=== PATIENT | female | born 1990 | race Asian ===

== ENCOUNTER 2025-06-29 22:58 | Inpatient (IN) ==
[2025-06-29] MEDS ORDERED: LIDOCAINE 1% LOCAL 20 ML VIAL INFIL PRN (23:15)
--- NOTE | 2025-06-29 23:21 | History & Physical Report ---
Date of Service June 29, 2025 Assessment & Plan (1) Previous delivery affecting , antepartum: Plan: Admit to L&D. Patient desires . Reviewed consent - patient aware of risk of uterine rupture, need for emergent surgery, need for hysterectomy, large blood loss. She would prefer to attempt to deliver vaginally rather than repeat section. She would like epidural. History of Present Illness Chief Complaint: labor Primary Care Provider: NO PCP 34yo @ 40 02/25, spontaneous labor. and Delivery Plans 2020, 2022 *[facility]- group ok with will need default c/s scheduled for 39w6d - pt aware 01/25. C/S SCHEDULED FOR 07/07/[address] FOOTE Hypothyroid *Check TFTs Q4wks ?Antiphospholipid Syndrome taking aspirin daily per her MD in [facility] - no further testing need per guidelines - discussed at [facility] Will be in [place] from 02/04 til April. GDM w/28wk glucola *Begin monthly Growth US's Allergies Allergy/AdvReac Type Severity Reaction Status Date / Time No Known Allergies Allergy Verified 06/29/25 09:15 Home Medications Medication Instructions Recorded Confirmed Type levothyroxine 25 mg PO DAILY 12/28/24 06/29/25 History acetone (urine) test (Ketone Urine #50 ea 05/12/25 06/29/25 Rx Test strips) blood sugar diagnostic (Accu-Chek #150 ea 05/12/25 06/29/25 Rx Guide test strips) blood-glucose meter (Accu-Chek #1 ea 05/12/25 06/29/25 Rx Guide Glucose Meter) lancets (Accu-Chek Softclix #100 ea 05/12/25 06/29/25 Rx Lancets) Patient History Medical History (Updated 06/29/25 @ 23:26 by Betty Ferrer RN) Vaginal after () 2022 delivery delivered 2020 Antiphospholipid syndrome Varicella vaccination Sacroiliitis Surgical History S/P laparoscopy S/P appendectomy S/P section Family History (Updated 12/28/24 @ 10:05 by Tanika Biswas) Father Diabetes Hypertension Denies family history of Ovarian cancer Breast cancer Colorectal cancer Social History (Updated 12/28/24 @ 10:06 by Tanika Biswas) Smoking Status: Never smoker Do You Dip or Chew Tobacco: No; Preferred Language: [place] Citizen marital status: marital status details: Pasha (33) [phone] Current Living Situation: Spouse and Family Current Living Situation Comment: lives with spouse, 2 children, no pets current occupational status: unemployed current occupation: homemaker Feels Safe at Home: Yes Review of Systems All systems reviewed & are unremarkable except as noted in HPI & below Physical Exam Physical Exam: FHT Cat 1 [place] irreg SVE 8/100/0 Constitutional: WD/WN, vitals as above Respiratory: normal respiratory effort, lungs clear to auscultation no respiratory distress Cardiovascular: Rate/Rhythm: regular rate and regular rhythm Gastrointestinal (Abdomen): Inspection/Auscultation: abdomen normal to inspection Percussion/Palpation: abdomen soft; abdomen nontender Gravid. No s/s chorio or abruption. Skin: no rashes, warm and dry Psychiatric: A+Ox3, euthymic affect Results & Data Vital Signs (Past 12 Hours) Vital Signs Pulse BP 06/29/25 23:15 88 129/72 Coding Level of Care Code None Diagnoses Previous delivery affecting , antepartum O34.219
[2025-06-29] MEDS: LACTATED RINGER'S 1,000 ML IV PRN (23:24)
[2025-06-29 23:58] LABS: Hematocrit (blood only) 35.4 % (37.0-47.0); Hemoglobin 11.6 g/dl (12.0-16.0); Mean Corpuscular Hemoglobin 29.7 pg (25.0-34.0); Mean Corpuscular Volume 90.8 fL (80.0-100.0); Platelet Count 234 K/uL (130-400); RDW Standard Deviation 42.7 fL (36.4-46.3); Red Blood Count 3.90 M/uL (4.20-5.40); White Blood Count 14.66 K/ul (4.8-10.8)
--- NOTE | 2025-06-30 | Anesthesiology Consultation ---
Date of Service June 29, 2025 Assessment & Plan (1) Encounter for pre-operative examination: Chart Review Chart Review: Acceptable Risk for Labor Epidural History Height/Weight Height: 5 ft 7.72 in Weight: 83.007 kg Allergies Allergy/AdvReac Type Severity Reaction Status Date / Time No Known Allergies Allergy Verified 06/29/25 09:15 Medications Home Medications Medication Instructions Recorded Confirmed Last Taken levothyroxine 25 mg PO DAILY 12/28/24 06/29/25 06/29/25 acetone (urine) test (Ketone Urine #50 ea 05/12/25 06/29/25 Unknown Test strips) blood sugar diagnostic (Accu-Chek #150 ea 05/12/25 06/29/25 Unknown Guide test strips) blood-glucose meter (Accu-Chek #1 ea 05/12/25 06/29/25 Unknown Guide Glucose Meter) lancets (Accu-Chek Softclix #100 ea 05/12/25 06/29/25 Unknown Lancets) Active Medications Generic Name Dose Route Start Last Admin Trade Name Freq PRN Reason Stop Dose Admin Lactated Ringer's 1,000 mls @ 125 mls/hr 06/29/25 23:15 06/29/25 23:24 Lr IV 07/01/25 23:14 999 mls/hr .Q8H PRN Administration L&D Protocol Protocol Past Medical History Medical History Vaginal after () 2022 delivery delivered 2020 Antiphospholipid syndrome Varicella vaccination Sacroiliitis Past Family History Family History Father Diabetes Hypertension Denies family history of Ovarian cancer Breast cancer Colorectal cancer Past Surgical History Surgical History S/P laparoscopy S/P appendectomy S/P section Social History Smoking Status: Never smoker Do You Dip or Chew Tobacco: No Hx Alcohol Use: No Hx Substance Use: No Physical Exam Vital Signs Last Vital Signs Temp 36.6 C 06/29/25 23:29 Pulse 88 06/29/25 23:15 Resp 18 06/29/25 23:29 BP 129/72 06/29/25 23:15 O2 Del Method Room Air 06/29/25 23:29 Testing Laboratory Results 06/29/25 23:46
[2025-06-30] MEDS: BUPIVACAINE 0.25% PF 30 ML VIAL ONE (00:22)
[2025-06-30] MEDS ORDERED: ONDANSETRON INJ 2 MG/ML 2 ML VIAL IV PRN (00:26)
[2025-06-30] MEDS ORDERED: NALOXONE HCL 0.4 MG/1 ML VIAL/CARP IV PRN (00:26)
[2025-06-30] MEDS: LIDOCAINE 2%/EPINEPHRINE 1:200,000 20 ML PF ONE (00:26)
[2025-06-30] MEDS ORDERED: SODIUM CHLORIDE 0.9% PF INJ 10 ML VIAL EPI PRN (00:26)
[2025-06-30] MEDS ORDERED: fentANYL 2 MCG/ML BUPIVacaine 0.125%-NSS 100ML BAG EPI PRN (00:26)
[2025-06-30] MEDS ORDERED: NALOXONE HCL 1 MG in SODIUM CHLORIDE 0.9% 1,000 ML IV PRN (00:26)
[2025-06-30] MEDS ORDERED: ROPIVACAINE 0.5% PF 5 MG/ML 20 ML VIAL EPI PRN (00:26)
[2025-06-30] MEDS ORDERED: LIDOCAINE 2% MPF LOCAL 5 ML VIAL EPI PRN (00:26)
[2025-06-30] MEDS ORDERED: BUPIVACAINE 0.25% PF 30 ML VIAL EPI PRN (00:26)
[2025-06-30] MEDS: fentANYL 2 MCG/ML BUPIVacaine 0.125%-NSS 100ML BAG ONE (00:31)
[2025-06-30] MEDS: BUPIVACAINE 0.25% PF 30 ML VIAL EPI STA (01:00)
[2025-06-30] MEDS: LIDOCAINE 2%/EPINEPHRINE 1:200,000 20 ML PF EPI STA (01:00)
[2025-06-30] MEDS: SODIUM CHLORIDE 0.9% PF INJ 10 ML VIAL EPI STA (01:00)
[2025-06-30] MEDS: SODIUM CHLORIDE 0.9% PF INJ 10 ML VIAL ONE (01:00)
[2025-06-30] MEDS: OXYTOCIN 30 UNITS/NSS 30 UNITS/500 ML BAG IV PRN ×2 (01:43→02:16)
--- NOTE | 2025-06-30 02:04 | Delivery Summary ---
Vaginal Delivery Summary Date of Service June 30, 2025 Vaginal Delivery Summary and 1st Degree LAC Vaginal Delivery Summary: Pre-delivery diagnoses: 34yo @ 39 0/7, spontaneous labor, h/o CS x 1, GDMA1 Post-delivery diagnoses: same Procedure: vaginal after section Surgeon: Rochelle Franco DO Complications: none Findings: Viable female . Apgars: 8/9 . Weight pending, please see nursery records Estimated blood loss: Description of delivery: The patient progressed to complete with epidural anesthesia. She then began to push. She spontaneously vaginally delivered a viable from the cephalic presentation. The head delivered in MARIANNA position. The anterior shoulder delivered, followed by the posterior shoulder, followed by the body. No nuchal. The baby was placed on mother's abdomen and a spontaneous cry was heard. Delayed cord clamping was employed, and the cord was doubly clamped and cut. Cord blood was obtained. The placenta was delivered spontaneously intact with a 3-vessel cord. The uterus and vagina were swept of clots and debris. IV pitocin was given. The uterus became firm. The cervix, vagina, and perineum were inspected. First degree perineal laceration and right labia minora laceration repaired with 3-0 Vicryl in standard fashion. Excellent hemostasis was observed. The mother and baby are recovering in stable and good condition in the room. Sponge, needle and instrument counts were correct x 2. Rochelle Franco DO [facility] Vaginal Delivery Charge Vaginal Delivery Codes: 91569 global code for the antepartum, delivery, and post- Delivery Type Details: and 1st Degree LAC
[2025-06-30] MEDS ORDERED: DIPHTHER/TETAN/PERTUS Vaccine (Tdap, Adol/Adult) 0.5mL IM ONE (02:11)
[2025-06-30] MEDS ORDERED: ACETAMINOPHEN 325 MG TAB PO PRN (02:11)
[2025-06-30] MEDS: OXYTOCIN 30 UNITS/500ML NSS IV ONE (02:30)
--- NOTE | 2025-06-30 02:53 | Anesthesia Procedure Note ---
Date of Service June 30, 2025 Anesthesia Post Epidural Note Vital Signs Vital Signs: Temp Pulse Resp BP Pulse Ox O2 Del Method 36.5 C 89 18 109/60 94 Room Air 06/30/25 02:00 06/30/25 02:45 06/30/25 02:30 06/30/25 02:45 06/30/25 01:43 06/29/25 23:29 Notes Mental Status: alert / awake / arousable and participated in evaluation Nausea / Vomiting: adequately controlled Pain: adequately controlled Airway Patency, RR, SpO2: stable & adequate BP & HR: stable & adequate Hydration State: stable & adequate Neuraxial Anesthesia: was administered and sensory block is resolving Anesthetic Complications: no major complications apparent Epidural: Removed without complications and With tip intact
[2025-06-30] MEDS: BENZOCAINE 20% SPRY 85 APPLN/85 GM CAN EXT PRN (04:21)
[2025-06-30] MEDS: LEVOTHYROXINE SODIUM 25 MCG TABLET PO SCH (06:30)
[2025-06-30] MEDS: IBUPROFEN 600 MG TAB PO PRN (08:34)
[2025-06-30] MEDS: PRENATAL VITAMIN 1 TAB PO SCH (08:34)
[2025-06-30] MEDS: DOCUSATE SODIUM 100 MG CAP PO SCH (08:34)
[2025-06-30] MEDS: HYDROCORTISONE ACETATE 25 MG SUPP PR PRN (16:16)
--- NOTE | 2025-07-01 06:17 | Obstetrical Progress Note ---
Date of Service July 01, 2025 Assessment & Plan (1) Gestational diabetes mellitus (GDM) affecting , antepartum: (2) Hypothyroid in , antepartum: (3) Previous delivery affecting , antepartum: Plan Assessment and plan 34 yo post- day 1 s/p Fells well today. Vital signs stable Continue post- care Encourage ambulation and Pain controlled with ibuprofen Hgb stable Discharge home today, follow up with Dr. Franco in 6 weeks. Admission and Anticipated Discharge Date Admission Date: June 29, 2025 Supervising Physician Co-Signing Physician Notes Resident Physician Supervision Note: I interviewed and examined the patient. Discussed with Dr. Khan and agree with findings and plan as documented in the note. Any exceptions or clarifications are listed here: [ ] Documented By: Laura Pop MD, FACOG, MSCP Subjective Post- HPI 34 yo post- day 1 s/p Ambulation: ambulating normally Voiding: no voiding problems Passing Gas:: Yes Diet Tolerance:: regular diet Lochia:: Small Feeding Type:: bottle feeding Current Pain Level:Slight pain Resting comfortably this AM in NAD. Denies MENARD, CP, SOB, N/V/D, LE pain/swelling. Physical Exam Physical Exam: Post- PE General: patient resting comfortably, NAD, non-toxic in appearance, AA&O x 4, answers questions appropriately. Skin: warm, dry, intact HEENT: NC/AT, anicteric sclera, conjunctiva without injection, moist mucus membranes. Heart: +S1/S2, regular, no m/r/g Lungs: equal air entry bilaterally, no rales/rhonchi/wheezes Abd: +BS, soft, NT/ND, uterine fundus firm at umbilicus, Ext: warm, no clubbing/cyanosis or edema, Giovanni's neg. Neuro: nonfocal, patient AA&O x 4, speech intact, no facial droop, moving all extremities on command. Results & Data Vital Signs (Past 12 Hours) Vital Signs Temp Pulse Pulse Resp BP Pulse Ox O2 Del Method 06/30/25 23:00 36.7 C 78 16 111/73 97 Room Air 06/30/25 20:10 36.8 C 88 14 90/57 L 97 Room Air Resident Activity Tracking Resident Involvement: Resident Care Provided Care Provided: OB Delivery
[2025-07-01 08:06] LABS: Hematocrit (blood only) 32.9 % (37.0-47.0); Hemoglobin 11.0 g/dl (12.0-16.0)
[2025-07-01] MEDS: HYDROCORTISONE 1% CRM 30 GM TUBE EXT PRN (22:15)
[2025-07-02 00:26] VITALS: O2SAT 98
--- NOTE | 2025-07-02 09:25 | Obstetrical Progress Note ---
Date of Service July 02, 2025 Assessment & Plan (1) Encounter for assessment: Plan Plan d/c home. Meeting milestones. Instructions reviewed. f/u in 6 weeks pp visit. Day #:: 2 Subjective Ambulation: ambulating normally Voiding: no voiding problems Passing Gas:: Yes Diet Tolerance:: regular diet Lochia:: Small Feeding Type:: breast feeding (with bottle supplement) Pain controlled Physical Exam Constitutional WD/WN, vitals as above Respiratory normal respiratory effort, lungs clear to auscultation Cardiovascular RRR, no murmur, no edema Extremities: no calf tenderness and no edema Gastrointestinal (Abdomen) soft, nt, nd, ff/nt at u Psychiatric A+Ox3, euthymic affect Results & Data Vital Signs (Past 12 Hours) Vital Signs Temp Pulse Resp BP Pulse Ox O2 Del Method 07/02/25 00:00 36.9 C 70 16 93/53 L 98 Room Air
[2025-07-02 09:55] VITALS: BP 102/65; RESP 18; TEMP 97.9
[2025-07-02 10:18] VITALS: PULSE 78
== END 2025-07-02 12:40 | disposition home or self-care (01) | DRG 807 ==
LOC: OPB 22:58 → 4S1 23:00 → 4E2 06-30 04:46